=== PATIENT | male | born 1950 | race Caucasian/White ===

== ENCOUNTER 2016-04-01 17:01 | Emergency (ER) | payer MEDICAID ==
[2016-04-01 18:03] VITALS: TEMP 99.5; BMI 23.0
[2016-04-01] MEDS ORDERED: Albuterol/Ipratropium Neb 3 ML NEB NEB ONE (18:11)
[2016-04-01] MEDS ORDERED: SODIUM CHLORIDE 0.9% 3 ML FLUSH FLUSH PRN (18:11)
--- NOTE | 2016-04-01 18:15 | EDPRACDOC ---
- General Information Chief Complaint: Flu-Like Symptoms Stated Complaint: COUGH; CONGESTION Time Seen by Provider: 04/01/16 17:57 Information Source: Patient Mode Of Arrival: Car Home Medications: Home Medications Unknown Antibiotic 0 mg PO BID 02/15/15 Albuterol Sulfate MDI [Proventil HFA] 2 puff INH Q4 PRN #1 inhaler 04/01/16 Levofloxacin [Levaquin] 750 mg PO DAILY #10 tab 04/01/16 Prednisone [Sterapred Ds] 10 mg PO DIR #21 pack 04/01/16 Allergies/Adverse Reactions: Allergies Allergy/AdvReac Type Severity Reaction Status Date / Time No Known Allergies Allergy Verified 02/15/15 16:08 - History of Present Illness Symptoms Started: 03/29/2016 HPI: PT C/O 5-6 DAYS OF COUGH SOB AND THICK YELLOW SPUTUM. STATES SEEMS TO BE GETTING WORSE NOW RUNNING FEVERS. Symptoms: Reports: Cough, Fever, Other (YELLOW SPUTUM) Recent Medications: Reports: None Relevant History Of: Reports: None Shortness of Breath: Mild Cough Frequency: Intermittent Cough Description: Reports: Productive (YELLOW SPUTUM), Congested Rhinorrhea: Reports: None Ear Symptoms: Reports: None Associated Signs and Symptoms: Reports: Cough, Fever, Other (CONGESTION AND SOB. ) ED Past Medical History - History Reviewed Yes Nurses notes reviewed and agree except as marked Travel Outside of [place] in the Last 3 Months?: No - Patient Medical History Neurological History: Reports: Seizures (Age 25) Cardiac History: Reports: Heart Attack, Syncope ( and had Bradycardia 2015. Workup negative) Musculoskeletal History: Reports: Arthritis Psychological History: Reports: Substance Use Disorder (occasional marijuana). Denies: Depression Surgical History: Reports: Cholecystectomy, Other (Multiple orthopedic procedures on his foot, legs, knees, and left wrist.) - Family Medical History Reports: Hypertension (Father), Cardiac Disorders (Father) - Social Medical History Smoking Status: Heavy tobacco smoker (5 or more cigarettes/day or daily pipe/ cigar) Social History: Reports: Substance Use Disorder (occasional marijuana) ETOH: None Substance Abuse: Illicit Drugs Lives With: Other Lives In: Home EDM Review of Systems - Review of Systems ROS Negative Except as Marked: Yes All systems reviewed and were negative except as marked Constitutional: Chills, Fever. negative: Fatigue, Loss of Appetite, Weakness Eyes: No Symptoms Reported. negative: Redness, Blurred Vision, Double Vision, Discharge, Pain, Light Sensitive, Photophobia Ears: No Symptoms Reported. negative: Pain, Hearing Loss, Drainage, Ear Pulling Throat: No Symptoms Reported. negative: Pain, Swelling Nose: No Symptoms Reported. negative: Congestion, Bleeding, Discharge, Injection, Swelling, Deformity, Ecchymosis, Tender, Abrasion, Laceration Mouth: No Symptoms Reported. negative: Pain, Drooling Respiratory: Cough, Shortness of Breath, Sputum. negative: Barky Cough, Brassy Cough, Hemoptysis, Wheezing Cardiovascular: No Symptoms Reported. negative: Chest Pain, Palpitations, Syncope, Edema, Orthopnea, PND, Skin Mottling, Cyanosis Gastrointestinal: No Symptoms Reported. negative: Pain, Constipation, Nausea, Vomiting, Diarrhea, Melena, Formula Intolerance Genitourinary: No Symptoms Reported. negative: Dysuria, Hematuria, Frequency, Discharge, Bleeding, Testicular Pain, Neurological: No Symptoms Reported. negative: Headache, Dizziness, Seizure, Numbness, Weakness, Speech Difficulty, Gait Difficulty Musculoskeletal: No Symptoms Reported. negative: Neck, Chestwall, Ribs, Back, Shoulder, Arm, Elbow, Forearm, Wrist, Hand, Pelvis, Hip, Femur, Knee, Leg, Ankle , Foot Integumentary: No Symptoms Reported. negative: Itching, Rash, Bruising, Wound Allergic/Immunologic: No Symptoms Reported. negative: Hives, Itching Hematologic: No Symptoms Reported. negative: Lymphadenopathy, Easy Bruising, Easy Bleeding Endocrine: No Symptoms Reported. negative: Weight Gain, Weight Loss Psychiatric: No Symptoms Reported. negative: Anxiety, Depression, Hallucinations, Insomnia, Suicidal - Physical Exam Constitutional: No apparent distress, Alert (Awake) Oriented to: Time, Person, Place Last recorded Vital Signs: Last Vital Signs Temp 99.5 F 04/01/16 18:00 Pulse 86 04/01/16 18:00 Resp 20 04/01/16 18:00 BP 145/99 04/01/16 18:00 Pulse Ox 95 04/01/16 18:00 Oxygen Pulse Oxygen Saturation 95 O2 Device Room Air Oxygen Flow Rate Fraction of Inspired Oxygen ( FIO2) - HEENT Head: Normal ( normocephalic) Eye Exam: Normal (PERRL, EOMI, Sclera white) Oropharynx: Normal (Pharynx:Moist without exudate,Gums-no swelling) Tympanic Membrane: Normal ENT EAC: Normal TMJ: Normal Nose: No Symptoms Reported (septum midline) Neck: Normal (FROM, trachea at midline) - Respiratory/Cardiovascular Respiratory: Diminished, Rhonchi, Wheezes (RT GREATER THAN LEFT) Cardiovascular: Normal (RRR without murmur, gallop or rub) - GI Auscultation: Normal (NABS) Palpation: Normal (Soft,No rebound or guarding, non distended) Tenderness: Non tender Barrera's Sign: Negative - Bladder: Normal - Musculoskeletal Back: Normal (Non-Tender) Extremities: Normal (Normal tone, Pulses 2+ No cyanosis or edema, FROM) - Integumentary Skin: Normal, Warm, Dry Lymphatics: Normal (no adenopathy) - Neurologic Memory Impaired: Normal Motor Function: Normal (Normal tone, Pulses 2+ No cyanosis or edema, FROM) Cranial Nerve: Normal (CN II-X11 intact sensation, strength 5/5) Cerebellar: Normal Mood Description: Normal Thought: Coherent Perception: Normal - Differential Diagnosis Bronchitis, Pneumonia, Viral - Results 04/01/16 18:38 04/01/16 18:38 - Diagnostic Imaging CXR Image interpreted by: Radiologist IMPRESSION: Chronic lung disease with new small area of opacity at the left lung base suspicious for acute infectious exacerbation. No pleural effusion and otherwise stable chest. Decision Time to Discharge: 19:42 - Departure Disposition: Home Final Diagnosis: COPD exacerbation, Bronchopneumonia Instructions: COPD (Chronic Obstructive Pulmonary Disease) (ED), Community Acquired Pneumonia (ED) Education/Counseling Given To: Patient Education/Counseling Given Regarding: Diagnosis, Treatment, Prognosis, Follow Up Referrals: Irvin Woodard MD [Primary Care Provider] - One Week Prescriptions: Albuterol Sulfate MDI [Proventil HFA] 2 puff INH Q4 PRN #1 inhaler PRN Reason: Shortness Of Breath Levofloxacin [Levaquin] 750 mg PO DAILY #10 tab Prednisone [Sterapred Ds] 10 mg PO DIR #21 pack
[2016-04-01] MEDS ORDERED: METHYLPREDNISOLONE 125 MG/2 ML VIAL IV ONE (18:19)
[2016-04-01 18:35] LABS: ABG Draw Site Left Brachial; ALLEN'S TEST PASS; BEb 0.7 (+/- 2); TCO2 25.4 MMOL/L (23-27)
--- NOTE | 2016-04-01 18:40 | DIRPT ---
CLINICAL DATA: 65-year-old male with cough and shortness of breath for 4 days. Initial encounter. EXAM: CHEST 2 VIEW COMPARISON: Chest radiographs 11/11/2014. FINDINGS: Stable lung volumes. Emphysema demonstrated by CT 02/15/2015. Stable mild tortuosity of the thoracic aorta. Other mediastinal contours are within normal limits. Visualized tracheal air column is within normal limits. No pneumothorax or pulmonary edema. No pleural effusion or consolidation. There is a small area of increased patchy opacity at the left lung base on the frontal view, not evident on the lateral. Lung markings elsewhere appears stable. No acute osseous abnormality identified. IMPRESSION: Chronic lung disease with new small area of opacity at the left lung base suspicious for acute infectious exacerbation. No pleural effusion and otherwise stable chest. Electronically Signed By: Jordin Hansen M.D. On: 04/01/2016 18:38
[2016-04-01 18:57] LABS: AUTOMATED BASOPHIL 0.8 % (0-2); AUTOMATED EOSINOPHIL 2.1 % (0-5); AUTOMATED LYMPH 19.6 % (17-44); AUTOMATED MONOCYTE 12.7 % (3-10); AUTOMATED NEUTROPHIL 64.8 % (45-76); MPV 7.1 fL (7.4-10.4)
[2016-04-01 19:16] LABS: BLOOD UREA NITROGEN 14 MG/DL (9-20); CALC CORRECTED 8.5 MG/DL (8.4-10.2); CALCIUM 8.2 MG/DL (8.4-10.2); CALCULATED OSMOLALITY 263 MOs/Kg (270-290); CHLORIDE 100 mEq/L (98-107); GLUCOSE 95 MG/DL (70-99); SODIUM LEVEL 136 mEq/L (137-146); TOTAL PROTEIN 7.1 G/DL (6.3-8.2)
[2016-04-01 20:11] VITALS: BP 136/95; PULSE 79
[2016-04-02] MEDS ORDERED: SODIUM CHLORIDE 0.9% 3 ML FLUSH FLUSH SCH (06:00)
== END 2016-04-01 20:10 | disposition home or self-care (01) ==
LOC: EDMC 17:01
DX: J44.1 Chronic obstructive pulmonary disease with (acute) exacerbation (principal); J44.0 Chronic obstructive pulmonary disease with (acute) lower respiratory infection; J18.0 Bronchopneumonia, unspecified organism
CPT/HCPCS: 36415; 36600; 71020; 80053; 82803; 83880; 85025; 87040; 94640; 96374; 99282; J2930; J7620